=== PATIENT | female | born 1970 | race Caucasian/White ===

== ENCOUNTER 2018-02-16 20:09 | Emergency (ER) | payer OTHER ==
[~2018-02-16] VITALS: Ht 180.3 cm; Wt 90.7 kg
== END 2018-02-16 21:13 | disposition home or self-care (01) ==
LOC: ER 20:09
DX: L03.221 Cellulitis of neck (principal)

== ENCOUNTER 2018-07-16 20:36 | Emergency (ER) | payer OTHER ==
[~2018-07-16] VITALS: Ht 180.3 cm; Wt 90.7 kg
== END 2018-07-17 05:31 | disposition home or self-care (01) ==
LOC: ER 20:36
DX: S43.084A Other dislocation of right shoulder joint, initial encounter (principal); X50.0XXA Overexertion from strenuous movement or load, initial encounter; Y93.89 Activity, other specified; Y92.89 Other specified places as the place of occurrence of the external cause; Y99.8 Other external cause status